=== PATIENT | female | born 1965 | race Asian ===

== ENCOUNTER 2017-12-02 06:29 | Day surgery (SDC) | payer BC ==
--- NOTE | 2017-11-28 15:13 | Pre-Procedure Note/Attestation ---
Pre-Procedure Note/Attestation Complete Prior to Procedure Planned Procedure: bilateral Procedure Narrative: 1- Ptosis correction, upper lids 2- Entropion correction upper lids 3- Blepharoplasty, upper lids Indications for Procedure Pre-Operative Diagnosis: 1- Ptosis ,upper lids 2- Entropion, upper lids 3- Blepharochalasis,upper lids. Attestation I attest that I discussed the nature of the procedure; its benefits; risks and complications; and alternatives (and the risks and benefits of such alternatives ), prior to the procedure, with the patient (or the patient's legal electroplating sales representative). I attest that, if there was a reasonable possibility of needing a blood transfusion, the patient (or the patient's legal electroplating sales representative) was given the [place] [employer] standardized written summary, pursuant to the [place] Blood Safety Act ([place] Health and Safety Code # 1645, as amended). I attest that I re-evaluated the patient just prior to the surgery and that there has been no change in the patient's H&P, except as documented below: TYLER CONTRERAS Nov 28, 2017 15:13
[~2017-12-02] VITALS: Ht 152.4 cm; Wt 66.7 kg
[2017-12-02] VITALS (10 sets, daily range): BP systolic 102–115; BP diastolic 70–80
[~2017-12-02 06:29] MED LIST: Akten 3.5% 1ml Btl BOTH EYES ONE; LOSARTAN-HCTZ1 EAC1 ORAL; Maxitrol Opth Oint 3.5gm BOTH EYES ONE
[2017-12-02] MEDS ORDERED: Tetracaine 0.5% Opth 4ml Soln ONE (06:33)
[2017-12-02] MEDS ORDERED: Tobradex Opth Oint 3.5gm ONE (06:33)
[2017-12-02] MEDS ORDERED: Bupivacaine 0.75% 30ml vial INJ ONE (06:34)
[2017-12-02] MEDS ORDERED: Lidocaine 2% 20mg/ml/EPI 0.01mg/ml 20ml ONE (06:34)
--- NOTE | 2017-12-02 06:58 | Anethesia Preoperative Eval ---
Anesthesia Pre-op PMH/ROS General Date of Evaluation: Dec 02, 2017 Time of Evaluation: 08:01 Anesthesiologist: donavon ASA Score: ASA 3 Mallampati Score Class I : Soft palate, uvula, fauces, pillars visible Class II: Soft palate, uvula, fauces visible Class III: Soft palate, base of uvula visible Class IV: Only hard plate visible Mallampati Classification: Class II Surgeon: michael Diagnosis: bilateral ptosis Surgical Procedure: bletharoplasty Anesthesia History: none Allergies: Coded Allergies: No Known Allergies (Unverified , 11/28/17) Past Medical History Cardiovascular: Reports: HTN Anesthesia Pre-op Phys. Exam Physician Exam Constitutional: NAD Neurologic: CN 2-12 intact Cardiovascular: RRR Respiratory: CTA Gastrointestinal: S/NT/ND Airway Exam Mallampati Score: Class II MO: full Neck: supple TMD: 2fb ROM: full Teeth: intact, other - veneers Anesthesia Pre-op A/P Risk Assessment & Plan Assessment: asa3 Plan: mac Status Change Before Surgery: No Pre-Antibiotics Drug: NALINI Hood Dec 02, 2017 06:57
[2017-12-02] MEDS ORDERED: Akten 3.5% 1ml Btl ONE (08:17)
[2017-12-02] MEDS ORDERED: fentaNYL 100 mcg/2 mL IV ONE (08:30)
[2017-12-02] MEDS ORDERED: Lidocaine 1% MPF 10mg/ml 5ml ONE (08:30)
[2017-12-02] MEDS ORDERED: LR 1000ml ONE (08:30)
[2017-12-02] MEDS ORDERED: NS Irrig 1000ml ONE (08:30)
[2017-12-02] MEDS ORDERED: Midazolam 2mg/2ml Inj ONE (08:30)
[2017-12-02] MEDS ORDERED: Propofol 200mg/20ml IV ONE (08:30)
[2017-12-02] MEDS ORDERED: Sterile Water Irrig 1000ml IRRIG ONE (08:30)
[2017-12-02] MEDS ORDERED: LR 1000ml 1,000 ML IVLG SCH (09:19)
[2017-12-02] MEDS ORDERED: fentaNYL 100 mcg/2 mL IV PRN (09:30)
[2017-12-02] MEDS ORDERED: Atropine Inj 1mg/10ml Syr IV PRN (09:30)
[2017-12-02] MEDS ORDERED: Midazolam 2mg/2ml Inj IVP PRN (09:30)
[2017-12-02] MEDS ORDERED: DiphenhydrAMINE 50mg/ml Inj IVP PRN (09:30)
[2017-12-02] MEDS ORDERED: Povidone-Iodine 5% opth solution ONE (10:23)
--- NOTE | 2017-12-02 10:23 | Discharge Summary ---
Discharge Summary Discharge Summary Discharge Summary DATE OF ADMISSION:12/02/2017 DATE OF DISCHARGE: 12/02/2017 REASON FOR HOSPITALIZATION: 1- Plepharopotosis, upper lids 2- Dermatochalasis OU , Entropion, upper lids SURGERY PERFORMED: 1- Ptosis correction, upper lids 2- Entropion correction upper lids #- Blepharoplasty, upper lids CONDITION IN THE HOSPITAL:The patient tolerated the surgery without complications. DISCHARGE CONDITION: The patient was stable at discharge. DISCHARGE MEDICATIONS: 1. Vigamox eye drops one drop q.i.d, OU 2. Prednisolone one drop q.i.d, OU 3. Maxitrol eye ointment apply to lids 4-- Keflex 500mg q8h POSTOPERATIVE ORDERS: The patient has to rest at home. No bending, No lifting, No watching Television tonight. POSTOPERATIVE FOLLOW UP: The patient will be followed in my office tomorrow morning at 7 o'clock. TYLER CONTRERAS Dec 02, 2017 10:23
--- NOTE | 2017-12-02 10:26 | Brief Operative Note ---
Immediate Post Operative Note Operative Note Chief Complaint: Droopy eyelids, difficulty driving and reading Pre-op Diagnosis: 1- Ptosis ,upper lids 2- Entropion, upper lids 3- Blepharochalasis,upper lids. Procedure: 1- Ptosis correction, upper lids 2- Entropion correction, upper lids 3- Blepharoplasty, bilaterally Post-op Diagnosis: same as pre-op Surgeon: yTler Diego MD. Distance Education Faculty Liaison: None Additional Surgeons: None Anesthesiologist: Dr. Dawkins Anesthesia: local, MAC Specimen: none Complications: none Condition: stable Fluids: 500ml Estimated Blood Loss: minimal Drains: none Packing: none Implant(s) used?: TYLER Key Dec 02, 2017 10:26
--- NOTE | 2017-12-02 11:09 | Immediate Post-Op Evaluation ---
Immediate Post-Op Evalulation Immediate Post-Op Evalulation Procedure: blepharoplasty Date of Evaluation: Dec 02, 2017 Time of Evaluation: 10:29 IV Fluids: 450ml lr Blood Products: none Estimated Blood Loss: negligible Blood Pressure Systolic: 112 Blood Pressure Diastolic: 70 Pulse Rate: 74 Respiratory Rate: 18 O2 Sat by Pulse Oximetry: 100 Temperature (Fahrenheit): 98.7 Pain Score (1-10): 0 Nausea: No Vomiting: No Complications none Patient Status: awake, reacts, patent Hydration Status: adequate Drug: NALINI Hood Dec 02, 2017 11:09
--- NOTE | 2017-12-02 15:49 | 48 Hour Post Anesthesia Eval ---
Post Anesthesia Evaluation Procedure: blepharoplasty Date of Evaluation: Dec 02, 2017 Time of Evaluation: 10:31 Blood Pressure Systolic: 112 0: 76 Pulse Rate: 70 Respiratory Rate: 18 Temperature (Fahrenheit): 98.7 O2 Sat by Pulse Oximetry: 100 Airway: patent Nausea: No Vomiting: No Pain Intensity: 0 Hydration Status: adequate Cardiopulmonary Status: stable Mental Status/LOC: patient returned to baseline Post-Anesthesia Complications: none Follow-up care needed: N/A NALINI LILLY Dec 02, 2017 15:49
--- NOTE | 2017-12-03 16:00 | Operative Note - Dictated ---
DATE OF OPERATION: 12/02/2017 FACILITY: [facility]. SURGEON: Noel Mesa M.D. WINDOW CLEANER: None. ANESTHESIOLOGIST: Joycelyn Arevalo M.D. ANESTHESIA: Monitored anesthesia care (MAC) plus local anesthesia with lidocaine 2% and Marcaine 0.75% 50/50. PREOPERATIVE DIAGNOSES: 1. Ptosis, upper lids. 2. Entropion, upper lids. 3. Dermatochalasis and blepharochalasis, upper lids in both eyes. POSTOPERATIVE DIAGNOSES: 1. Ptosis, upper lids. 2. Entropion, upper lids. 3. Dermatochalasis and blepharochalasis, upper lids in both eyes. SURGERY PERFORMED: 1. Ptosis correction, upper lids. 2. Entropion correction, upper lids. 3. Blepharoplasty, upper lids. INDICATION FOR SURGERY: The patient is a 52-year-old lady with history of hypertension and osteoarthritis. She is taking the hydrochlorothiazide and losartan. She is not a smoker. She is not a drinker. She is not allergic to any medications. She is complaining of blurry vision and droopy eyelids and difficulty driving because of upper lid droopiness. She is suffering from severe blepharochalasis with ptosis and entropion of upper lids. This is a progressive dermatochalasis skin disease with resulting changes of corneal curvature, which induces astigmatism and covers visual axis, which is interruption for driving. The severity of the patient's dermatochalasis, ptosis, and ectropion in the upper lids is clearly demonstrated on the enclosed photos and the patient's visual hope. The only solution for this patient is correction of all those disfigurements and anatomy changes with surgery. There is no alternative. INFORMED CONSENT: The nature of the surgery, risks, benefits, alternatives, and potential complications were explained in detail to the patient. She voiced understanding. The potential complications including, but not limited to bleeding, infections, corneal exposure, over correction, under correction, ecchymosis, swelling of the face, hematoma, dry eye syndrome, loss of eyelashes, loss of eyebrows, inequality of both eyes, change in vision, even loss of the vision, and loss of the eye were all explained in detail to the patient. She voiced understanding and accepted all the complications. Then, she signed the consent form, which is in the chart. DESCRIPTION OF SURGERY AND FINDINGS: Following that, the patient was taken to the operation room in stable condition. Lidocaine gel 3.5% Akten was applied to the conjunctivae of both eyes. Following that, after eye lids were marked with a marking pen 10 mm above the root of the eyelashes and 15 mm below the lower part of the eyebrows. About 25 mm of skin was left to facilitate eye closure. IV sedation was given by the anesthesiologist, Dr. Simons. After sedation and anesthesia had been achieved, the upper eyelids and eyebrows were all anesthetized with 2% lidocaine and epinephrine with Marcaine. Following that, using a Bovie knife, the skin and subdermal tissue were dissected from the orbicularis oculi muscle and excised. A narrow cut was made into the orbicularis oculi muscle and hemostasis was performed. Then, two fat compartments were released. The fat compartments were sculptured conservatively. Following that, the levator palpebrae superioris tendon was dissected to the aponeurosis of the muscle and aponeurosis of the muscle tacked about 6 mm on each side and stitched with 6-0 Vicryl and the sutures were trimmed. Then, the palpebral sutures were compared before the sutures tied on both sides and they were equal. Following that, a wedge groove was made 3 mm above the root of the upper eye lashes. Following that, the tarsal plate inside the groove was excised with the Vannas scissors. Following that, the lips of the groove were stitched together with 6-0 Vicryl and stitches were then trimmed. Following that, orbicularis oculi muscle was stitched together, and the skin was closed with 6-0 plain gut in the fashion of continuous running aesthetic stitches. At the end of surgery, the pressure Band-Aids were placed on the eyebrow. The patient tolerated the procedure without complications. At the end of the surgery, TobraDex eye ointment was applied to the wound. Following that, the patient was transferred to the recovery room. In the recovery room, cold compresses were applied to the area, and the wound was checked for bleeding and there was no bleeding. Postop orders and directions were given to the patient. The patient will be discharged home upon stabilization. The patient will be followed in my office tomorrow morning. Noel Mesa M.D. DR: HALEIGH JOB#: [id number] CC:
== END 2017-12-02 11:45 | disposition home or self-care (01) ==
LOC: SUR 06:29
DX: H02.403 Unspecified ptosis of bilateral eyelids (principal); H02.004 Unspecified entropion of left upper eyelid; H02.001 Unspecified entropion of right upper eyelid; H02.34 Blepharochalasis left upper eyelid; H02.31 Blepharochalasis right upper eyelid; H02.834 Dermatochalasis of left upper eyelid; H02.831 Dermatochalasis of right upper eyelid; H53.8 Other visual disturbances; I10 Essential (primary) hypertension; M19.90 Unspecified osteoarthritis, unspecified site
CPT/HCPCS: 15822; 67924; J2250; J2704; J3010; J3490; J7120; 94003; 94150